=== PATIENT | female | born 1970 | race American Indian/Alaskan Native ===

== ENCOUNTER 2018-06-06 09:26 | Emergency (ER) | payer OTHER ==
[2018-06-06 09:50] VITALS: BP 119/68
[2018-06-06] MEDS ORDERED: ULTRAM PO ONE (11:36)
--- NOTE | 2018-06-06 11:39 | Emergency Department Report ---
Blank Doc - Documentation Documentation: Patient presents to the emergency department with a chief complaint of diffuse joint pain has been getting worse over the last month. Patient endorses a a family history of rheumatoid and osteoarthritis. Patient states in the morning she has to massage and ways to get moving. Patient also complains of dizziness with standing up and also has a history of anemia which she was supposed to be taken iron tablets for but had not taken them in years until last week. Patient denies chest pain, abdominal pain, headache. Patient does endorse cough. Physical exam is unremarkable besides decreased cap refill. Care will be turned over to the mid-level provider with consultation as needed by me
[2018-06-06 12:08] LABS: Hematocrit 36.3 % (30.3-42.9); Hemoglobin 11.6 gm/dl (10.1-14.3); Mean Corpuscular HGB Conc 32 % (30-34); Mean Corpuscular Volume 79 fl (79-97); Platelet Count 144 K/mm3 (140-440)
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
[2018-06-06 12:09] LABS: Mean Corpuscular Hemoglobin 25 pg (28-32)
[2018-06-06 12:12] LABS: Basophils % (Auto) 0.6 % (0.0-1.8); Eosinophils % (Auto) 10.3 % (0.0-4.3); Lymphocytes % (Auto) 23.1 % (13.4-35.0); Monocytes % (Auto) 13.2 % (0.0-7.3)
[2018-06-06 12:13] LABS: Eosinophils # (Auto) 0.5 K/mm3 (0.0-0.4); Lymphocytes # (Auto) 1.1 K/mm3 (1.2-5.4); Monocytes # (Auto) 0.6 K/mm3 (0.0-0.8)
[2018-06-06 12:41] LABS: Alanine Aminotransferase 26 units/L (7-56); Albumin 3.7 g/dL (3.9-5); BUN/Creatinine Ratio 16; Blood Urea Nitrogen 14 mg/dL (7-17); Calcium 8.9 mg/dL (8.4-10.2); Hemolysis Index 8
--- NOTE | 2018-06-06 12:50 | XRay Report ---
AP CHEST: HISTORY: Cough No comparison. The lateral right hemidiaphragm is elevated with blunting of the right costophrenic angle. I suspect this represents chronic right pleural thickening although a small right pleural effusion could be considered. The lungs are clear otherwise. Normal heart and mediastinal structures. Normal bony thorax. IMPRESSION: Mild chronic right pleural thickening versus small right pleural effusion. See above.
== END 2018-06-06 13:54 | disposition home or self-care (01) ==
LOC: ED 09:26
DX: J20.9 Acute bronchitis, unspecified (principal); J45.909 Unspecified asthma, uncomplicated; F17.200 Nicotine dependence, unspecified, uncomplicated
CPT/HCPCS: 36415; 71045; 80053; 85007; 85025

== ENCOUNTER 2019-03-01 10:04 | Emergency (ER) | payer OTHER ==
[2019-03-01] MEDS ORDERED: HALDOL IM PRN (11:14)
[2019-03-01] MEDS ORDERED: ATIVAN IM PRN (11:14)
[2019-03-01] MEDS ORDERED: PROVENTIL IH PRN (11:15)
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
[2019-03-01 11:45] LABS: Hemoglobin 11.2 gm/dl (10.1-14.3); Mean Corpuscular HGB Conc 31 % (30-34); Mean Corpuscular Volume 75 fl (79-97); Platelet Count 194 K/mm3 (140-440); Red Blood Count 4.82 M/mm3 (3.65-5.03); Red Cell Distribution Width 18.7 % (13.2-15.2)
[2019-03-01 12:11] LABS: BUN/Creatinine Ratio 11; Blood Urea Nitrogen 9 mg/dL (7-17); Calcium 8.5 mg/dL (8.4-10.2); Hemolysis Index 7
[2019-03-01 12:37] LABS: Bacteria,Urine 1+ /HPF (Negative); Bilirubin,Urine NEG (Negative); Blood,Urine LG (Negative); Color,Urine Yellow (Yellow); Mucus,Urine FEW /HPF; Protein,Urine <15 mg/dL mg/dL (Negative)
[2019-03-01 13:29] LABS: Benzodiazepines Screen,Urine PRESUMPTIVE NEGATIVE; Methadone Screen,Urine PRESUMPTIVE NEGATIVE; Opiate Screen,Urine PRESUMPTIVE NEGATIVE
[2019-03-01 13:41] LABS: Amphetamine Screen,Urine PRESUMPTIVE POSITIVE; Cannabinoid Screen,Urine PRESUMPTIVE POSITIVE; Cocaine Screen,Urine PRESUMPTIVE POSITIVE
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
[2019-03-02] MEDS: BUSPAR PO SCH ×2 (11:50→22:39)
[2019-03-02] MEDS: REMERON PO SCH (22:39)
--- NOTE | 2019-03-03 10:28 | Progress Note ---
Subjective - Reason for Consult Consult date: 03/03/19 Reason for consult: Psychiatry Follow-up - Chief Complaint Chief complaint: "I had a good night" 48 y.o. AA female who presented to the ER for SI's. Today the patient is calm and cooperative during the assessment. She stated that she had a good night. She stated that she spoke with family and feel that she will have a support system when discharged. She stated that she plan to stay complaint with her medications, seek therapy, and stay off "drugs." She denies SI/HI's and AVH's. She denies any side effects of her medications. Mental Status Exam - Vital signs Last Vital Signs Temp 98.0 F 03/03/19 07:45 Pulse 73 03/03/19 07:45 Resp 18 03/03/19 07:45 BP 111/71 03/03/19 07:45 Pulse Ox 100 03/03/19 07:45 - Exam Narrative exam: Appearance: calm, cooperative Behavior: regular eye contact Speech: regular rate and tone Mood: "okay" Affect: flat Thought Process: linear Thought Content: denies SI/HI's and AVH's Motor Activity: ambulatory Cognition: A/O x3 Insight: fair Judgment: variable to fair Assessment and Plan Impression: MDD, Severe Type. PTSD. Substance Use DO (cocaine/amphetamines). Cannabis Use DO. Unspecified Anxiety DO. Today the patient calm and cooperative during the assessment. No acute withdrawals noted. DDx: Substance Induced Mood DO, R/O Alcohol Use DO Recommendation/Plan: Reevaluate the patient's 1013 in 24 hours. Continue Remeron 15 mg PO HS for depression/PTSD and Buspar 7.5 mg PO BID for anxiety. Discussed possible suicidality/medication induced maru with the patient reference Remeron, she verbalized understanding. Dispo If the patient's 1013 is rescinded in 24 hours, she can follow up with [facility] for outpatient psy services. Staffed with Dr. Pretty Casanova.
[2019-03-03] MEDS: BUSPAR PO SCH ×2 (10:33→22:37)
[2019-03-03] MEDS ORDERED: IBUPROFEN PO ONE ×2 (18:21→18:30)
[2019-03-03] MEDS: REMERON PO SCH (22:39)
[2019-03-04] MEDS: BUSPAR PO SCH ×2 (10:39→21:51)
--- NOTE | 2019-03-04 15:07 | Progress Note ---
Subjective - Reason for Consult Consult date: 03/04/19 Reason for consult: Psychiatric Follow-up Evaluation - Chief Complaint Chief complaint: "Enormous" Patient is a 48 y.o. AA female who presented to the ER for SI's. Today the patient is calm and cooperative during the assessment. She states, " I don't have any suicidal thoughts." She verbalizes when she goes home she will change her routine. She states, " I have to stop doing drugs." Patient believes that she has to stay complaint with her medications, seek therapy, and stay off "drugs." She reports appropriate sleep and appetite. She denies SI/HI's, A/VH's, delusions, and cravings to drugs. Patient is medication compliant. She denies any side effects. Upon her discharge she will return home to her partner. Mental Status Exam - Vital signs Last Vital Signs Temp 98.9 F 03/04/19 14:13 Pulse 86 03/04/19 14:13 Resp 20 03/04/19 14:13 BP 116/83 03/04/19 14:13 Pulse Ox 100 03/04/19 14:13 - Exam Narrative exam: Mental Status Exam: Appearance: calm, cooperative Behavior: regular eye contact Speech: regular rate and tone Mood: "enormous" Affect: appropriate Thought Process: circumstantial Thought Content: denies SI/HI's, AVH's, and delusions Motor Activity: ambulatory Cognition: A/O x 3 Insight: variable to fair Judgment: variable to fair Assessment and Plan Impression: MDD, Severe Type. PTSD. Substance Use DO (cocaine/amphetamines). Cannabis Use DO. Unspecified Anxiety DO. Today the patient calm and cooperative during the assessment. No acute withdrawals noted. DDx: Substance Induced Mood DO, R/O Alcohol Use DO Recommendation/Plan: 1. Reevaluate the patient's 1013 in 24 hours. 2. Continue Remeron 15 mg PO HS for depression/PTSD and Buspar 7.5 mg PO BID for anxiety. Discussed possible suicidality/medication induced maru with the patient reference Remeron, she verbalized understanding. 3. Provider will attempt to contact patient's partner [phone]. Verbal consent given. Disposition: Accepted to [facility]. Awaiting transport time. Staffed with Dr. Pretty Casanova.
[2019-03-04] MEDS ORDERED: TYLENOL PO PRN (21:00)
[2019-03-04] MEDS ORDERED: TYLENOL ONE (21:27)
[2019-03-04] MEDS: REMERON PO SCH (21:51)
[2019-03-05] MEDS: BUSPAR PO SCH ×2 (09:23→10:18)
[2019-03-05 12:59] VITALS: BP 131/79
== END 2019-03-05 13:06 ==
LOC: EEVIPCON 10:04 → ED 10:04
DX: F32.9 Major depressive disorder, single episode, unspecified (principal); J45.909 Unspecified asthma, uncomplicated; F17.200 Nicotine dependence, unspecified, uncomplicated; F15.90 Other stimulant use, unspecified, uncomplicated; F14.90 Cocaine use, unspecified, uncomplicated
CPT/HCPCS: 36415; 80048; 80307; 81001; 82550; 82962; 83735; 84702; 85027; 94640; 99285; G0480; 80320

== ENCOUNTER 2021-06-02 06:38 | Emergency (ER) | payer OTHER ==
[2021-06-02] MEDS ORDERED: ALBUTEROL 2.5 MG/3 ML NEBU IH ONE ×2 (07:00→07:19)
[2021-06-02] MEDS ORDERED: IPRATROPIUM 0.02% NEBU 2.5 ML IH ONE ×2 (07:01→07:19)
[2021-06-02] MEDS ORDERED: dexAMETHasone 20 MG/5 ML VIAL IV ONE (07:19)
[2021-06-02 07:21] VITALS: BP 156/91
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
--- NOTE | 2021-06-02 08:34 | XRay Report ---
CHEST 2 VIEWS INDICATION: Shortness of breath hypoxic. COMPARISON: AP chest report dated 06/06/2018. The images are not available. FINDINGS: Support devices: None. Heart: Within normal limits. Lungs/pleura: Elevated right lateral hemidiaphragm is again seen and could represent chronic right pl eural thickening or small right pleural effusion. This appears to be unchanged since 06/16/2018 repor t. The lungs are clear otherwise. No pneumothorax. Additional findings: None. IMPRESSION: Right lung findings as described. This is to be a chronic finding. The lungs are clear otherwise. Signer Name: Dov Patricio Jr, MD Signed: 06/02/2021 8:30 AM Workstation Name: [id number]
[2021-06-02] MEDS ORDERED: MAGNESIUM SULFATE 2 GM/50 ML BAG IV ONE (10:11)
[2021-06-02] MEDS: ALBUTEROL 2.5 MG/3 ML NEBU IH ONE ×2 (10:26→11:10)
== END 2021-06-02 12:04 | disposition home or self-care (01) ==
LOC: ED 06:38
DX: J45.901 Unspecified asthma with (acute) exacerbation (principal); D64.9 Anemia, unspecified; F17.200 Nicotine dependence, unspecified, uncomplicated; F14.90 Cocaine use, unspecified, uncomplicated; F15.90 Other stimulant use, unspecified, uncomplicated; Z98.890 Other specified postprocedural states; Z79.899 Other long term (current) drug therapy
CPT/HCPCS: 71046; 94640; 96365; 96375; 99283; J1100; J3475; 94644

== ENCOUNTER 2021-09-29 04:08 | Emergency (ER) | payer SELFPAY ==
[2021-09-29 04:14] VITALS: BP 136/76
[2021-09-29] MEDS ORDERED: LEVALBUTEROL 0.63 MG/3 ML NEBU IH ONE (04:31)
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
== END 2021-09-29 05:35 | disposition home or self-care (01) ==
LOC: ED 04:08
DX: J45.909 Unspecified asthma, uncomplicated (principal)
CPT/HCPCS: 99282

== ENCOUNTER 2022-01-25 22:19 | Observation (INO) | payer BC ==
[2022-01-25] MEDS ORDERED: IPRATROPIUM 0.02% NEBU 2.5 ML IH ONE ×2 (22:32)
[2022-01-25] MEDS ORDERED: MAGNESIUM SULFATE 2 GM/50 ML BAG IV ONE (22:32)
[2022-01-25] MEDS ORDERED: methylPREDNISolone Sod Succinate 125 MG/2 ML INJ IV ONE (22:32)
[2022-01-25] MEDS ORDERED: ALBUTEROL 2.5 MG/3 ML NEBU IH ONE ×3 (22:32)
[2022-01-25] MEDS ORDERED: SODIUM CHLORIDE 0.9% 1000 ML 1,000 ML IV ONE (22:32)
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
--- NOTE | 2022-01-25 23:14 | XRay Report ---
CHEST 1 VIEW INDICATION / CLINICAL INFORMATION: dypsnea. COMPARISON: Chest x-ray 06/02/2021 FINDINGS: SUPPORT DEVICES: None. HEART / MEDIASTINUM: No significant abnormality. LUNGS / PLEURA: The lungs are clear. Chronic blunting of the right costophrenic angle is stable. ADDITIONAL FINDINGS: No significant additional findings. IMPRESSION: 1. No active cardiopulmonary disease. Signer Name: Praveen Rodríguez II, MD Signed: 01/25/2022 11:09 PM Workstation Name: [id number]
[2022-01-25 23:47] LABS: Alanine Aminotransferase 25 units/L (7-56); Albumin 3.8 g/dL (3.9-5); BUN/Creatinine Ratio 10; Blood Urea Nitrogen 8 mg/dL (7-17); Calcium 9.1 mg/dL (8.4-10.2); Hemolysis Index 8
[2022-01-25 23:57] LABS: Hematocrit 34.6 % (30.3-42.9); Hemoglobin 10.8 gm/dl (10.1-14.3); Mean Corpuscular HGB Conc 31 % (30-34); Red Blood Count 4.95 M/mm3 (3.65-5.03)
[2022-01-25 23:58] LABS: Mean Corpuscular Volume 70 fl (79-97); Platelet Count 195 K/mm3 (140-440); Red Cell Distribution Width 22.4 % (13.2-15.2)
[2022-01-26] MEDS ORDERED: ALBUTEROL 2.5 MG/3 ML NEBU IH ONE (00:59)
[2022-01-26] MEDS ORDERED: MAGNESIUM SULFATE 2 GM/50 ML BAG IV ONE (01:28)
[2022-01-26] MEDS ORDERED: methylPREDNISolone Sod Succinate 125 MG/2 ML INJ ONE (01:28)
[2022-01-26] MEDS ORDERED: SODIUM CHLORIDE 0.9% 1000 ML 1,000 ML ONE (01:40)
[2022-01-26 02:14] LABS: Anisocytosis 1+; Hypochromasia 2+; Total Cells Counted 100
[2022-01-26] MEDS ORDERED: ACETAMINOPHEN 325 MG TAB PO PRN (02:57)
[2022-01-26] MEDS ORDERED: MORPHINE 2 MG/1 ML INJ IV PRN (02:57)
[2022-01-26] MEDS ORDERED: HYDROmorphone 1 MG/1 ML INJ IV PRN (02:57)
[2022-01-26] MEDS ORDERED: ALBUTEROL 2.5 MG/3 ML NEBU IH PRN (02:57)
[2022-01-26] MEDS ORDERED: ONDANSETRON 4 MG/2 ML INJ IV PRN (02:57)
[2022-01-26] MEDS ORDERED: ALBUTEROL 8.5 GM MDI INHALATION IH PRN (02:58)
[2022-01-26] MEDS ORDERED: NON-FORMULARY EACH (Albuterol Sulfate [Albuterol 0.63% Nebs] 0.63 MG/3 ML Vial.Neb) IH PRN (02:58)
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
[2022-01-26] MEDS ORDERED: THIAMINE 100 MG, FOLIC ACID 1 MG, MULTIPLE VITAMIN INJ, ADULT 10 ML in SODIUM CHLORIDE ... IV ONE (03:06)
[2022-01-26] MEDS ORDERED: NICOTINE 14 MG/24 HR PATCH TD ONE (03:06)
[2022-01-26] MEDS: AZITHROMYCIN 250 MG TAB PO SCH (09:50)
[2022-01-26] MEDS: FAMOTIDINE 20 MG TAB PO SCH ×2 (09:51→22:07)
[2022-01-26] MEDS: HEPARIN 5,000 UNIT/1 ML VIAL SUB-Q SCH ×2 (09:51→22:08)
[2022-01-26] MEDS: IPRATROPIUM/ALBUTEROL SULFATE 3 ML AMPUL.NEB IH SCH ×3 (10:37→19:13)
[2022-01-26] MEDS ORDERED: LORazepam 2 MG/ML VIAL IV PRN ×2 (12:25)
[2022-01-26] MEDS ORDERED: chlordiazePOXIDE 25 MG CAP PO PRN (12:25)
--- NOTE | 2022-01-26 12:25 | Event Note ---
Date: 01/26/22 The patient was evaluated this morning, and she was found to be hemodynamically stable. The patient is currently experiencing acute hypoxic respiratory failure in the setting of her asthma exacerbation. Patient will also be initiated on CIWA protocol due to concerns for alcohol use.
[2022-01-26] MEDS: methylPREDNISolone Sod Succinate 40 MG/1 ML INJ IV SCH ×3 (17:26→22:08)
[2022-01-26] MEDS ORDERED: MONTELUKAST 10 MG TAB PO SCH ×2 (18:00→22:00)
[2022-01-27] MEDS: IPRATROPIUM/ALBUTEROL SULFATE 3 ML AMPUL.NEB IH SCH ×3 (01:41→14:41)
[2022-01-27] MEDS: methylPREDNISolone Sod Succinate 40 MG/1 ML INJ IV SCH (05:22)
[2022-01-27 06:53] LABS: Basophils # (Auto) 0.2 K/mm3 (0.0-0.1); Basophils % (Auto) 1.8 % (0.0-1.8); Eosinophils % (Auto) 0.1 % (0.0-4.3); Lymphocytes # (Auto) 0.6 K/mm3 (1.2-5.4); Lymphocytes % (Auto) 5.5 % (13.4-35.0); Mean Corpuscular HGB Conc 30 % (30-34); Mean Corpuscular Volume 71 fl (79-97); Monocytes # (Auto) 0.4 K/mm3 (0.0-0.8); Monocytes % (Auto) 4.3 % (0.0-7.3)
[2022-01-27 06:54] LABS: Hematocrit 36.7 % (30.3-42.9); Hemoglobin 11.1 gm/dl (10.1-14.3); Platelet Count 221 K/mm3 (140-440); Red Cell Distribution Width 23.3 % (13.2-15.2)
[2022-01-27 07:06] LABS: BUN/Creatinine Ratio 22; Blood Urea Nitrogen 13 mg/dL (7-17); Calcium 8.8 mg/dL (8.4-10.2); Hemolysis Index 11
[2022-01-27] MEDS: HEPARIN 5,000 UNIT/1 ML VIAL SUB-Q SCH (11:12)
[2022-01-27] MEDS: FAMOTIDINE 20 MG TAB PO SCH (11:12)
[2022-01-27] MEDS: AZITHROMYCIN 250 MG TAB PO SCH (11:13)
[2022-01-27] MEDS ORDERED: BUDESONIDE 0.5 MG/2 ML NEBU IH SCH (11:30)
--- NOTE | 2022-01-27 11:32 | Discharge Summary ---
Providers - Providers Date of Admission: 01/26/22 02:57 Date of discharge: 01/27/22 Attending physician: HOLDEN CHAMBERLAIN MD Primary care physician: SHARATH BRINK Hospitalization Reason for admission: respiratory distress Condition: Stable Hospital course: 51-year-old female with history of asthma who resented with shortness of breath. She was subsequently found to be in respiratory distress. She was admitted for hypoxic respiratory failure secondary to asthma exacerbation. She was started on supplemental O2, DuoNeb treatment and steroids. Patient respiratory status improved and she was transitioned to room air. Once stable, patient was discharged home. Disposition: 01 HOME / SELF CARE / HOMELESS Final Discharge Diagnosis (Prints w/discharge instructions): Acute hypoxic respiratory failure. Acute asthma exacerbation. Anemia. History of tobacco dependence. History of alcohol dependence Time spent for discharge: 35 minutes Core Measure Documentation - Palliative Care Palliative Care/ Comfort Measures: Not Applicable - Core Measures Any of the following diagnoses?: none Exam - Physical Exam Narrative exam: GENERAL: Well-developed well-nourished. In no acute distress. HEENT: Normocephalic. Atraumatic. NECK: Supple. CHEST/LUNGS: Expiratory wheezes on room air HEART/CARDIOVASCULAR: RRR. No murmur, rubs or gallops appreciated. ABDOMEN: +BS. NT/ND. SKIN: No rashes noted. NEURO: No focal motor deficit. Follows all commands. MUSCULOSKELETAL: No joint effusion EXTREMITIES: No cyanosis, clubbing or edema. PSYCH: Cooperative. - Constitutional Vitals: Temp Pulse Resp BP Pulse Ox 98.0 F 94 H 17 163/90 94 01/27/22 04:23 01/27/22 08:31 01/27/22 08:31 01/27/22 04:23 01/27/22 08:32 Plan Care Plan Goals: Please make sure to go to your pulmonary appointment in March. We have sent you some inhalers. Please use as prescribed. Please complete steroids. If you continue to have worsening shortness of breath please return to the ED. Follow up with: SHARATH BRINK MD [Primary Care Provider] - 7 Days Prescriptions: Prednisone [predniSONE 10 mg (6-Day Pack, 21 Tabs)] 10 mg PO .TAPER 6 Days #1 tab.ds.pk Albuterol Sulfate [Proair Digihaler] 90 mcg IH Q4H PRN 30 Days #3 each PRN Reason: Shortness Of Breath Montelukast [Singulair] 10 mg PO QPM #14 tablet Budesonide/Formoterol Fumarate [Symbicort 160-4.5 Mcg Inhaler] 10.2 gm IH BID 30 Days #3 each Azithromycin [Zithromax TAB] 500 mg PO QDAY 3 Days #6 tablet
[2022-01-27 13:58] VITALS: BP 160/96
[2022-01-28] MEDS ORDERED: methylPREDNISolone Sod Succinate 40 MG/1 ML INJ IV SCH (10:00)
--- NOTE | 2022-01-28 14:13 | Electrocardiograph Report ---
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
== END 2022-01-27 15:00 | disposition home or self-care (01) ==
LOC: ED 22:19 → 3A 01-26 02:57 → INTOOBSV 01-26 02:57
PROVIDERS: ADMIT Hospitalist; ATTEND Student in an Organized Health Care Education/Training Program
DX: J45.901 Unspecified asthma with (acute) exacerbation (principal); D64.9 Anemia, unspecified; D25.9 Leiomyoma of uterus, unspecified; F10.129 Alcohol abuse with intoxication, unspecified; F17.200 Nicotine dependence, unspecified, uncomplicated; Z98.891 History of uterine scar from previous surgery; Z79.899 Other long term (current) drug therapy; Z98.890 Other specified postprocedural states
CPT/HCPCS: 36415; 71045; 80048; 80053; 83735; 83880; 84484; 85025; 93005; 94640; 94644; 94760; 96365; 96366; 96367; 96372; 96375; 96376; 99285; G0378; J1644; J2920; J2930; J3411; J3475; J3490; J7030; 85007; Q0162

== ENCOUNTER 2022-05-15 19:13 | Emergency (ER) | payer SELFPAY ==
[2022-05-15 20:42] VITALS: BP 164/99
[2022-05-15] MEDS ORDERED: IPRATROPIUM 0.02% NEBU 2.5 ML IH ONE (21:28)
[2022-05-15] MEDS ORDERED: ALBUTEROL 2.5 MG/3 ML NEBU IH ONE (21:28)
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
[2022-05-15] MEDS ORDERED: IBUPROFEN 400 MG TAB PO ONE (23:47)
== END 2022-05-16 00:41 | disposition home or self-care (01) ==
LOC: ED 19:13
DX: J45.901 Unspecified asthma with (acute) exacerbation (principal); K21.9 Gastro-esophageal reflux disease without esophagitis; J45.909 Unspecified asthma, uncomplicated; Z13.30 Encounter for screening examination for mental health and behavioral disorders, unspecified; Z79.899 Other long term (current) drug therapy
CPT/HCPCS: 94644; 99283